=== PATIENT | female | born 1990 | race Caucasian/White ===

== ENCOUNTER 2021-05-12 23:03 | Emergency (ER) | payer OTHER ==
[~2021-05-12] VITALS: Ht 165.1 cm; Wt 84.4 kg
[2021-05-12] MEDS ORDERED: ERYTHROMYCIN E3.5 G2 OPHTHALMIC (23:44)
[2021-05-12 23:49] VITALS: BP 122/65
== END 2021-05-12 23:50 | disposition home or self-care (01) ==
LOC: M.ERS 23:03
DX: H10.32 Unspecified acute conjunctivitis, left eye (principal); Z88.0 Allergy status to penicillin

== ENCOUNTER 2021-05-25 16:23 | Emergency (ER) | payer OTHER ==
[~2021-05-25] VITALS: Ht 165.1 cm; Wt 81.7 kg
[~2021-05-25 16:23] MED LIST: ERYTHROMYCIN E3.5 G2 OPHTHALMIC
[2021-05-25 18:13] VITALS: BP 120/74
== END 2021-05-25 18:15 | disposition home or self-care (01) ==
LOC: M.ERS 16:23
DX: M79.644 Pain in right finger(s) (principal); K08.89 Other specified disorders of teeth and supporting structures; Z53.21 Procedure and treatment not carried out due to patient leaving prior to being seen by health care provider